=== PATIENT | female | born 1995 | race Two or more races ===

== ENCOUNTER 2018-06-03 10:05 | Emergency (ER) | payer OTHER ==
[~2018-06-03] VITALS: Ht 157.5 cm; Wt 68.9 kg
[~2018-06-03 10:05] MED LIST: PEPCID20 MG PO
== END 2018-06-03 13:57 | disposition home or self-care (01) ==
LOC: ER 10:05
DX: J45.998 Other asthma (principal)

== ENCOUNTER 2018-06-17 17:16 | Emergency (ER) | payer OTHER ==
[~2018-06-17] VITALS: Ht 157.5 cm; Wt 68.9 kg
== END 2018-06-17 20:15 | disposition home or self-care (01) ==
LOC: ER 17:16
DX: J32.8 Other chronic sinusitis (principal)

== ENCOUNTER 2019-04-14 10:12 | Emergency (ER) | payer OTHER ==
[~2019-04-14] VITALS: Ht 157.5 cm; Wt 63.5 kg
[2019-04-14] MEDS ORDERED: NORFLEX100MG PO (13:42)
== END 2019-04-14 14:28 | disposition home or self-care (01) ==
LOC: ER 10:12
DX: R07.89 Other chest pain (principal)